=== PATIENT | female | born 1940 | race Caucasian/White ===

== ENCOUNTER 2018-09-14 09:03 | Emergency (ER) | payer OTHER ==
[2018-09-14] MEDS ORDERED: KETOROLAC 30 MG/ML INJ ONE (09:51)
--- NOTE | 2018-09-14 10:09 | RAD REPORT ---
EXAM DESCRIPTION: CT - Spine Lumbar Wo Con - 09/14/2018 9:53 am CLINICAL HISTORY: Radiculopathy. PAIN COMPARISON: No comparisons TECHNIQUE: Axial noncontrast CT imaging of the lumbar spine was performed with coronal and sagittal re-formatted images. All CT scans are performed using dose optimization technique as appropriate and may include automated exposure control or mA/KV adjustment according to patient size. FINDINGS: A mild wedge compression fracture is seen affecting the L5 vertebral body. The bones are d iffusely osteopenic. Loss of vertebral body height is estimated at 10-20%. No canal compromise seen. Moderate facet hypertrophy is present lower lumbar spine bilaterally. Several stones are present in the gallbladder. Intervertebral disc disease assessment is inherently limited by CT. Within these limitations, no high -grade canal stenosis suspected. IMPRESSION: Mild wedge compression fracture, likely osteoporotic in etiology, affects L5. Vertebral body height loss is estimated at 10-20% and there is no evidence of canal compromise.
--- NOTE | 2018-09-14 10:24 | EDPHYS ---
Physician Documentation [facility] Name: Bonita Stovall Age: 78 yrs Sex: Female : 1940 Arrival Date: 09/14/2018 Time: 09:07 Bed 15 Private MD: Job Ferrera ED Physician Ravin Bueno HPI: 09/14 10:08 This 78 yrs old Female presents to ER via Ambulatory with complaints of Back kb Pain. 10:08 The patient presents with pain that is acute. The symptoms are located in the low back. kb Onset: The symptoms/episode began/occurred 2 day(s) ago. The pain does not radiate. Associated signs and symptoms: The patient has no apparent associated signs or symptoms. The problem was sustained when lifting heavy potted plant. Modifying factors: The patient symptoms are alleviated by nothing, the patient symptoms are aggravated by laying down and getting back to sitting position. Severity of symptoms: At their worst the symptoms were moderate, in the emergency department the symptoms have improved, mildly. The patient has not experienced similar symptoms in the past. The patient has not recently seen a physician. Pt states she lifted a heavy potted plant on Friday morning to move it. States she has had pain since then, but last night was the worst. STates "I need some kind of pain medication for night time." Reports no pain while sitting on stretcher. STates the pain is worse when shy lays down and tries to get back up. . Historical: - Allergies: 09:17 PENICILLINS; hj 09:17 Sulfa (Sulfonamide Antibiotics); hj - PMHx: 09:17 Hypertension; hj - PSHx: 09:17 Hysterectomy; Bladder suspension; hj - Immunization history:: Adult Immunizations unknown. - Social history:: Smoking status: Patient/guardian denies using tobacco. - Ebola Screening: : No symptoms or risks identified at this time. ROS: 10:08 Constitutional: Negative for fever, chills, and weight loss, Cardiovascular: Negative kb for chest pain, palpitations, and edema, Respiratory: Negative for shortness of breath, cough, wheezing, and pleuritic chest pain, Abdomen/GI: Negative for abdominal pain, nausea, vomiting, diarrhea, and constipation, : Negative for injury, bleeding, discharge, and swelling, MS/Extremity: Negative for injury and deformity, Skin: Negative for injury, rash, and discoloration, Neuro: Negative for headache, weakness, numbness, tingling, and seizure. 10:08 Back: Positive for pain with movement, of the lumbar area. Exam: 10:08 Constitutional: This is a well developed, well nourished patient who is awake, alert, kb and in no acute distress. Head/Face: Normocephalic, atraumatic. Chest/axilla: Normal chest wall appearance and motion. Nontender with no deformity. No lesions are appreciated. Cardiovascular: Regular rate and rhythm with a normal S1 and S2. No gallops, murmurs, or rubs. Normal PMI, no JVD. No pulse deficits. Respiratory: Lungs have equal breath sounds bilaterally, clear to auscultation and percussion. No rales, rhonchi or wheezes noted. No increased work of breathing, no retractions or nasal flaring. Abdomen/GI: Soft, non-tender, with normal bowel sounds. No distension or tympany. No guarding or rebound. No evidence of tenderness throughout. Skin: Warm, dry with normal turgor. Normal color with no rashes, no lesions, and no evidence of cellulitis. MS/ Extremity: Pulses equal, no cyanosis. Neurovascular intact. Full, normal range of motion. Neuro: Awake and alert, GCS 15, oriented to person, place, time, and situation. Cranial nerves II-XII grossly intact. Motor strength 5/5 in all extremities. Sensory grossly intact. Cerebellar exam normal. Normal gait. 10:08 Back: pain, that is mild, ROM is normal, normal spinal alignment noted, no tenderness upon palpation. Vital Signs: 09:17 BP 153 / 84; Pulse 81; Resp 18; Temp 97.5(O); Pulse Ox 98% on R/A; Weight 61.23 kg; hj Height 5 ft. 3 in. (160.02 cm); Pain 10/10; 10:15 BP 172 / 87; Pulse 79; Resp 18; Temp 97.8(TE); Pulse Ox 99% on R/A; mh5 10:40 Temp 97.8(TE); ph 09:17 Body Mass Index 23.91 (61.23 kg, 160.02 cm) MDM: 09:19 Patient medically screened. kb 10:08 Data reviewed: vital signs, nurses notes. Data interpreted: Pulse oximetry: on room air kb is 98 %. Interpretation: normal. 10:22 Counseling: I had a detailed discussion with the patient and/or guardian regarding: the kb historical points, exam findings, and any diagnostic results supporting the discharge/admit diagnosis, radiology results, the need for outpatient follow up, a family practitioner, to return to the emergency department if symptoms worsen or persist or if there are any questions or concerns that arise at home. 09/14 09:33 Order name: CT Lumbar Spine Wo Con; Complete Time: 10:19 kb Administered Medications: 09:45 Drug: TORadol 60 mg Route: IM; Site: right gluteus; ph 10:40 Follow up: Response: No adverse reaction; Pain is decreased ph Disposition: 10:56 Co-signature as Attending Physician, Ravin Bueno MD. rn Disposition: 09/14/18 10:22 Discharged to Home. Impression: Wedge compression fracture of fifth lumbar vertebra. - Condition is Stable. - Discharge Instructions: Spinal Compression Fracture. - Prescriptions for Cyclobenzaprine 10 mg Oral Tablet - take 1 tablet by ORAL route every 8 hours As needed; 21 tablet. Diclofenac Sodium 75 mg Oral Tablet, Delayed Release (E.C.) - take 1 tablet by ORAL route 2 times per day As needed; 30 tablet. - Medication Reconciliation Form, Thank You Letter, Antibiotic Education, Prescription Opioid Use form. - Follow up: Emergency Department; When: As needed; Reason: Worsening of condition. Follow up: Private Physician; When: 2 - 3 days; Reason: Recheck today's complaints, Continuance of care, Re-evaluation by your physician. Signatures: Dispatcher [employer] EDTiffany Butler, ORACLE SQL DEVELOPER-C ORACLE SQL DEVELOPER-Ckb Ravin Bueno MD MD rn Hall, Patricia, RN RN Tee Us RN RN Corrections: (The following items were deleted from the chart) 10:42 10:22 09/14/2018 10:22 Discharged to Home. Impression: Wedge compression fracture of ph fifth lumbar vertebra. Condition is Stable. Forms are Medication Reconciliation Form, Thank You Letter, Antibiotic Education, Prescription Opioid Use. Follow up: Emergency Department; When: As needed; Reason: Worsening of condition. Follow up: Private Physician; When: 2 - 3 days; Reason: Recheck today's complaints, Continuance of care, Re-evaluation by your physician. kb
--- NOTE | 2018-09-14 10:24 | ER ---
Nurse's Notes [facility] Name: Bonita Stovall Age: 78 yrs Sex: Female : 1940 Arrival Date: 09/14/2018 Time: 09:07 Bed 15 Private MD: Job Ferrera Diagnosis: Wedge compression fracture of fifth lumbar vertebra Presentation: 09/14 09:15 Presenting complaint: Patient states: I picked up a heavy flower pot and noticed pain hj on my lower back; last night, the pain is worse; denies numbness and tingling on legs;. Transition of care: patient was not received from another setting of care. Onset of symptoms was September 14, 2018. Risk Assessment: Do you want to hurt yourself or someone else? Patient reports no desire to harm self or others. Initial Sepsis Screen: Does the patient meet any 2 criteria? No. Patient's initial sepsis screen is negative. Does the patient have a suspected source of infection? No. Patient's initial sepsis screen is negative. Care prior to arrival: None. 09:15 Method Of Arrival: Ambulatory 09:15 Acuity: AYDEN 4 hj Historical: - Allergies: 09:17 PENICILLINS; hj 09:17 Sulfa (Sulfonamide Antibiotics); hj - PMHx: 09:17 Hypertension; hj - PSHx: 09:17 Hysterectomy; Bladder suspension; hj - Immunization history:: Adult Immunizations unknown. - Social history:: Smoking status: Patient/guardian denies using tobacco. - Ebola Screening: : No symptoms or risks identified at this time. Screenin:48 Abuse screen: Denies threats or abuse. Denies injuries from another. Nutritional ph screening: No deficits noted. Tuberculosis screening: No symptoms or risk factors identified. Fall Risk None identified. Assessment: 09:45 General: Appears in no apparent distress. comfortable, slender, well groomed, Behavior ph is calm, cooperative, appropriate for age. Pain: Complains of pain in lumbar area Aggravated by increased activity, repositioning. Neuro: Level of Consciousness is awake, alert, obeys commands, Oriented to person, place, time, situation, Denies blurred vision paresthesias numbness. Cardiovascular: Capillary refill < 3 seconds in bilateral fingers Patient's skin is warm and dry. Respiratory: Airway is patent Respiratory effort is even, unlabored, Respiratory pattern is regular, symmetrical. GI: No signs and/or symptoms were reported involving the gastrointestinal system. Derm: Skin is intact, is healthy with good turgor, Skin is pink, warm \T\ dry. Musculoskeletal: Circulation, motion, and sensation intact. Range of motion: intact in all extremities. Vital Signs: 09:17 BP 153 / 84; Pulse 81; Resp 18; Temp 97.5(O); Pulse Ox 98% on R/A; Weight 61.23 kg; hj Height 5 ft. 3 in. (160.02 cm); Pain 10/10; 10:15 BP 172 / 87; Pulse 79; Resp 18; Temp 97.8(TE); Pulse Ox 99% on R/A; mh5 10:40 Temp 97.8(TE); ph 09:17 Body Mass Index 23.91 (61.23 kg, 160.02 cm) ED Course: 09:07 Patient arrived in ED. ss 09:07 Job Ferrera MD is Private Physician. ss 09:09 Tiffany Jackson FNP-C is [facility]. kb 09:09 Ravin Bueno MD is Attending Physician. kb 09:16 Triage completed. hj 09:17 Arm band placed on left wrist. hj 09:32 Bonita Arreguin, RN is Primary Nurse. ph 09:48 Patient has correct armband on for positive identification. Bed in low position. Call ph light in reach. Side rails up X 1. Door closed. Noise minimized. Warm blanket given. Head of bed elevated. 09:54 CT Lumbar Spine Wo Con In Process Unspecified. EDMS 10:40 No provider procedures requiring assistance completed. Patient did not have IV access ph during this emergency room visit. Administered Medications: 09:45 Drug: TORadol 60 mg Route: IM; Site: right gluteus; ph 10:40 Follow up: Response: No adverse reaction; Pain is decreased ph Outcome: 10:22 Discharge ordered by . kb 10:42 Patient left the ED. ph 10:42 Discharged to home ambulatory, with significant other. ph 10:42 Condition: good 10:42 Discharge instructions given to patient, Instructed on discharge instructions, follow up and referral plans. no driving heavy equipment, Demonstrated understanding of instructions, follow-up care, medications, Prescriptions given X 2. Signatures: Dispatcher [employer] Tiffany Goodwin, CROWN BUFFER-C CROWN BUFFER-Ckb Alfreda Portillo, RN RN ss Bonita Arreguin, RN RN Tee Scherer, RN RN Geno Soliman [facility]
== END 2018-09-14 10:42 | disposition home or self-care (01) ==
LOC: ER 09:03
DX: S32.050A Wedge compression fracture of fifth lumbar vertebra, initial encounter for closed fracture (principal); I10 Essential (primary) hypertension; Z88.0 Allergy status to penicillin; Z88.2 Allergy status to sulfonamides
CPT/HCPCS: 72131; 96372; 99283